=== PATIENT | male | born 1945 | race Caucasian/White ===

== ENCOUNTER 2020-01-15 20:03 | Inpatient (IN) ==
[2020-01-15] MEDS ORDERED: Aspirin 81 MG TAB.CHEW PO ONE (20:06)
[2020-01-15] MEDS: Nitroglycerin 0.4 MG TAB.SUBL SL PRN ×3 (20:34→20:55)
[2020-01-15 20:49] LABS: Basophils # 0.1 K/mcL (0.0-0.2); Basophils % 0.9 %; Eosinophils # 0.2 K/mcL (0.0-0.6); Eosinophils % 2.4 %; Hematocrit 43.8 % (37.5-50.1); Hemoglobin 14.7 g/dL (12.9-16.9); Immature Granulocytes % 0.4 % (0-4); Lymphocytes # 1.8 K/mcL (0.6-4.6); Lymphocytes % 22.4 %; Mean Corpuscular HGB Conc 33.6 g/dL (31.6-35.5); Mean Corpuscular Hemoglobin 29.9 pg (28.0-33.3); Mean Platelet Volume 10.2 fL (9.4-12.4); Monocytes # 0.6 K/mcL (0.0-1.3); Monocytes % 6.9 %; Neutrophils # 5.3 K/mcL (1.6-8.9); Platelet Count 195 K/mcL (140-400); Red Blood Count 4.92 M/mcL (4.19-5.50)
[2020-01-15 20:51] LABS: Prothrombin Time 11.1 Seconds (9.4-12.1)
[2020-01-15 20:53] LABS: Activated Partial Thrombo Time 32.5 Seconds (26.0-36.0)
[2020-01-15 21:08] LABS: BUN/Creatinine Ratio 25 (6-26); Blood Urea Nitrogen 21 mg/dL (8-23); Calcium 9.3 mg/dL (8.6-10.3); Carbon Dioxide 26 mEq/L (23-29); Chloride 102 mEq/L (98-107); Glucose 155 mg/dL (70-105); Osmolality,Calculated 292 (280-300); Potassium 4.9 mEq/L (3.5-5.1); Sodium 138 mEq/L (136-145); eGFR For African Americans > 60 (> 60); eGFR For Non-African Americans > 60 (> 60)
[2020-01-15 21:11] LABS: Troponin I 0.11 ng/mL (< 0.04)
[2020-01-15] MEDS ORDERED: *HR* Heparin 5,000 UNIT/ML VIAL IVP PRN ×2 (21:46)
[2020-01-15] MEDS ORDERED: *HR* Heparin 5,000 UNIT/ML VIAL IVP ONE (21:46)
[2020-01-15] MEDS: Heparin 25,000 UNIT/250 ML D5W 25,000 UNIT/250 ML IV.SOLN IVC SCH (22:02)
[2020-01-15 22:19] LABS: Hematocrit 42.9 % (37.5-50.1); Hemoglobin 14.1 g/dL (12.9-16.9); Mean Corpuscular HGB Conc 32.9 g/dL (31.6-35.5); Mean Corpuscular Hemoglobin 30.1 pg (28.0-33.3); Mean Corpuscular Volume 91.5 fL (83.0-100.0); Mean Platelet Volume 10.1 fL (9.4-12.4); Platelet Count 189 K/mcL (140-400); Red Blood Count 4.69 M/mcL (4.19-5.50); White Blood Count 8.3 K/mcL (4.3-11.1)
[2020-01-15 22:22] LABS: Prothrombin Time 11.3 Seconds (9.4-12.1)
[2020-01-15 22:23] LABS: Heparin anti-factor XA UFH < 0.04 IU/mL (0.30-0.70)
[2020-01-15] MEDS ORDERED: Dextrose Gel 15 GM/37.5 ML TUBE PO PRN ×2 (23:38)
[2020-01-15] MEDS ORDERED: *HR* Dextrose 50 % in Water (Syg) 50 ML SYRINGE IVP PRN (23:38)
[2020-01-15] MEDS ORDERED: D5% in Water 1,000 ML IVC PRN (23:38)
[2020-01-16] MEDS ORDERED: Acetaminophen 325 MG TABLET PO PRN (02:15)
[2020-01-16] MEDS ORDERED: Naloxone 0.4 MG/ML INJ IVP PRN (02:15)
[2020-01-16] MEDS ORDERED: Ondansetron 4 MG/2 ML VIAL IVP PRN (02:15)
[2020-01-16] MEDS: 0.9 % Sodium Chloride 1,000 ML IVC SCH ×2 (03:21→18:15)
[2020-01-16 05:04] LABS: Basophils % 0.5 %; Eosinophils # 0.2 K/mcL (0.0-0.6); Eosinophils % 2.2 %; Hematocrit 42.6 % (37.5-50.1); Hemoglobin 14.1 g/dL (12.9-16.9); Immature Granulocytes % 0.4 % (0-4); Lymphocytes # 2.4 K/mcL (0.6-4.6); Lymphocytes % 28.6 %; Mean Corpuscular HGB Conc 33.1 g/dL (31.6-35.5); Mean Corpuscular Volume 90.6 fL (83.0-100.0); Mean Platelet Volume 10.3 fL (9.4-12.4); Monocytes # 0.6 K/mcL (0.0-1.3); Monocytes % 6.6 %; Neutrophils # 5.1 K/mcL (1.6-8.9); Platelet Count 188 K/mcL (140-400); Red Cell Distribution Width 13.9 % (11.5-14.5); Segmented Neutrophils % 61.7 %; White Blood Count 8.3 K/mcL (4.3-11.1)
[2020-01-16 05:06] LABS: Prothrombin Time 11.6 Seconds (9.4-12.1)
[2020-01-16 05:21] LABS: Alanine Aminotransferase 5 Units/L (7-52); Albumin 4.1 g/dL (3.5-5.7); Albumin/Globulin Ratio 1.7 (1.1-2.2); Alkaline Phosphatase 80 Units/L (34-104); Aspartate Amino Transferase 33 Units/L (13-39); BUN/Creatinine Ratio 25 (6-26); Bilirubin,Total 0.5 mg/dL (0.3-1.0); Blood Urea Nitrogen 20 mg/dL (8-23); Calcium 8.9 mg/dL (8.6-10.3); Carbon Dioxide 26 mEq/L (23-29); Chloride 104 mEq/L (98-107); Chol/HDL Ratio 3.3 (0-4.9); Cholesterol 124 mg/dL (< 200); Globulin 2.4 g/dL (2.4-3.5); Glucose 99 mg/dL (70-105); HDL Cholesterol 38 mg/dL (40-59); LDL Cholesterol,Calculated 57 mg/dL (0-99); Magnesium 1.4 mg/dL (1.6-2.6); Osmolality,Calculated 289 (280-300); Phosphorous 2.9 mg/dL (2.7-4.5); Potassium 4.3 mEq/L (3.5-5.1); Sodium 138 mEq/L (136-145); Total Protein 6.5 g/dL (6.4-8.9); Triglycerides 146 mg/dL (< 150); eGFR For African Americans > 60 (> 60); eGFR For Non-African Americans > 60 (> 60)
[2020-01-16] MEDS ORDERED: Morphine Sulfate 2 MG/ML SYRINGE IVP ONE (05:54)
[2020-01-16] MEDS: Nitroglycerin 0.4 MG TAB.SUBL SL PRN (06:38)
[2020-01-16] MEDS: Tiotropium 18 MCG inhalation IH SCH (07:23)
[2020-01-16] MEDS: Insulin LISPRO 300 UNITS/3 ML VIAL SQ SCH ×3 (07:57→19:24)
[2020-01-16] MEDS: Gabapentin 400 MG CAPSULE PO SCH ×4 (08:40→20:39)
[2020-01-16] MEDS: FLUoxetine 20 MG CAPSULE PO SCH (08:40)
[2020-01-16] MEDS ORDERED: 0.9 % Sodium Chloride 1,000 ML ONE ×2 (08:43→10:35)
[2020-01-16] MEDS ORDERED: Heparin 1,000 UNITS/500 mL 500 ML ONE ×2 (08:44→10:35)
[2020-01-16] MEDS ORDERED: ISOVUE-370 200 ML INFUS..BTL ONE ×3 (08:44→10:35)
[2020-01-16] MEDS ORDERED: *HR* Heparin 10,000 UNIT/10 ML VIAL ONE ×2 (08:44→10:35)
[2020-01-16] MEDS ORDERED: Nitroglycerin 1,000 MCG/10 ML VIAL IV ONE ×2 (08:44→10:36)
[2020-01-16] MEDS: Aspirin 81 MG TAB.CHEW PO SCH (08:45)
[2020-01-16] MEDS ORDERED: Tirofiban 12.5 MG/250ML 12.5 MG/250 ML BAG ONE (09:00)
[2020-01-16] MEDS ORDERED: *HR* Midazolam HCl 2 MG/2 ML VIAL ONE ×2 (09:26→10:38)
[2020-01-16] MEDS ORDERED: *HR* FentaNYL (PF) 100 MCG/2 ML VIAL ONE ×2 (09:27→10:38)
[2020-01-16] MEDS ORDERED: Tirofiban 12.5 MG/250ML 12.5 MG/250 ML BAG IVC SCH (10:45)
[2020-01-16] MEDS ORDERED: Morphine Sulfate 2 MG/ML SYRINGE IVP PRN (14:26)
[2020-01-16] MEDS: Heparin 25,000 UNIT/250 ML D5W 25,000 UNIT/250 ML IV.SOLN IVC SCH (20:51)
[2020-01-17] MEDS: Tiotropium 18 MCG inhalation IH SCH (07:42)
[2020-01-17] MEDS: Insulin LISPRO 300 UNITS/3 ML VIAL SQ SCH ×2 (07:54→12:03)
[2020-01-17] MEDS: FLUoxetine 20 MG CAPSULE PO SCH (08:04)
[2020-01-17] MEDS: Aspirin 81 MG TAB.CHEW PO SCH (08:04)
[2020-01-17] MEDS: Gabapentin 400 MG CAPSULE PO SCH (08:04)
[2020-01-17 10:48] VITALS: BP 109/67
[2020-01-17] MEDS ORDERED: lisinopriL 5 MG TABLET PO SCH (12:00)
== END 2020-01-17 13:52 | disposition home or self-care (01) | DRG 247 ==
LOC: 3BNU 20:03 → EMEROOARM 20:03 → 3BNU 22:26 → SUATTDRO 01-16 11:38
PROVIDERS: ADMIT Student in an Organized Health Care Education/Training Program; ATTEND Internal Medicine

== ENCOUNTER 2021-01-07 15:48 | Observation (INO) ==
[2021-01-07] MEDS ORDERED: 0.9 % Sodium Chloride 1,000 ML IVC ONE (16:23)
[2021-01-07 16:50] LABS: Basophils # 0.1 K/mcL (0.0-0.2); Basophils % 0.4 %; Eosinophils # 0.1 K/mcL (0.0-0.6); Eosinophils % 0.8 %; Hematocrit 36.8 % (37.5-50.1); Hemoglobin 11.9 g/dL (12.9-16.9); Immature Granulocytes % 0.7 % (0-4); Lymphocytes # 1.4 K/mcL (0.6-4.6); Lymphocytes % 12.1 %; Mean Corpuscular HGB Conc 32.3 g/dL (31.6-35.5); Mean Corpuscular Hemoglobin 29.7 pg (28.0-33.3); Mean Corpuscular Volume 91.8 fL (83.0-100.0); Mean Platelet Volume 10.1 fL (9.4-12.4); Monocytes # 0.8 K/mcL (0.0-1.3); Monocytes % 6.7 %; Neutrophils # 8.9 K/mcL (1.6-8.9); Platelet Count 202 K/mcL (140-400); Red Blood Count 4.01 M/mcL (4.19-5.50); Red Cell Distribution Width 13.8 % (11.5-14.5); Segmented Neutrophils % 79.3 %; White Blood Count 11.3 K/mcL (4.3-11.1)
[2021-01-07] MEDS ORDERED: Tdap (Boostrix) Vaccine 0.5 ML SYRINGE IM ONE (16:56)
[2021-01-07 16:58] LABS: INR 1.1; Prothrombin Time 12.5 Seconds (9.4-12.1)
[2021-01-07 17:15] LABS: Alanine Aminotransferase 22 Units/L (7-52); Albumin 4.1 g/dL (3.5-5.7); Albumin/Globulin Ratio 1.8 (1.1-2.2); Alkaline Phosphatase 91 Units/L (34-104); Aspartate Amino Transferase 23 Units/L (13-39); BUN/Creatinine Ratio 24 (6-26); Bilirubin,Direct 0.1 mg/dL (0.0-0.2); Bilirubin,Indirect 0.4 mg/dL (0.0-1.0); Bilirubin,Total 0.5 mg/dL (0.3-1.0); Blood Urea Nitrogen 34 mg/dL (8-23); Calcium 8.5 mg/dL (8.6-10.3); Carbon Dioxide 20 mEq/L (23-29); Chloride 104 mEq/L (98-107); Creatine Kinase 554 Units/L (30-223); Globulin 2.3 g/dL (2.4-3.5); Glucose 170 mg/dL (70-105); Lipase 21 Units/L (11-82); Magnesium 1.5 mg/dL (1.6-2.6); Osmolality,Calculated 294 (280-300); Potassium 4.6 mEq/L (3.5-5.1); Sodium 136 mEq/L (136-145); Total Protein 6.4 g/dL (6.4-8.9); Troponin I < 0.03 ng/mL (< 0.04); eGFR For African Americans 59 (> 60); eGFR For Non-African Americans 48 (> 60)
[2021-01-07] MEDS ORDERED: Morphine Sulfate 2 MG/ML SYRINGE IVP STA (19:07)
[2021-01-07 19:17] LABS: Bilirubin,Urine Negative (Negative); Blood,Urine Negative (Negative); Clarity,Urine Clear (Clear); Color,Urine Light-Yellow (Yellow); Glucose,Urine (UA) Normal (Normal); Ketones,Urine Negative (Negative); Leukocyte Esterase,Urine Negative (Negative); Nitrite,Urine Negative (Negative); PH,Urine 5.5 pH Units (5.0-8.0); Protein,Urine Trace mg/dL (Neg-Trace); Specific Gravity,Urine 1.018 (1.010-1.025); Urobilinogen,Urine Normal (Normal)
[2021-01-07] MEDS ORDERED: Ondansetron 4 MG/2 ML VIAL IVP PRN (20:38)
[2021-01-07] MEDS ORDERED: Naloxone 0.4 MG/ML INJ IVP PRN (20:38)
[2021-01-07] MEDS ORDERED: Melatonin 3 MG TABLET PO PRN (20:38)
[2021-01-07] MEDS ORDERED: Acetaminophen 325 MG TABLET PO PRN (20:38)
[2021-01-07] MEDS ORDERED: *HR* Promethazine 25 MG/ML VIAL IM PRN (20:38)
[2021-01-07] MEDS ORDERED: Magnesium Sulfate 1 GM/102 ML PIGGYBACK IVPB ONE (20:43)
[2021-01-07] MEDS ORDERED: Ringers Solution, Lactated 1,000 ML IVC SCH (20:45)
[2021-01-07] MEDS ORDERED: NON-FORMULARY MEDICATION 1 EACH EACH (Atorvastatin Calcium [Lipitor] 80 MG Tablet) PO SCH (21:00)
[2021-01-07] MEDS: Primidone 50 MG TABLET PO SCH (22:17)
[2021-01-08 01:24] LABS: Basophils % 0.5 %; Eosinophils # 0.1 K/mcL (0.0-0.6); Eosinophils % 0.9 %; Hematocrit 36.3 % (37.5-50.1); Hemoglobin 11.9 g/dL (12.9-16.9); Immature Granulocytes % 0.5 % (0-4); Lymphocytes # 1.7 K/mcL (0.6-4.6); Mean Corpuscular HGB Conc 32.8 g/dL (31.6-35.5); Mean Corpuscular Hemoglobin 30.3 pg (28.0-33.3); Mean Corpuscular Volume 92.4 fL (83.0-100.0); Mean Platelet Volume 10.1 fL (9.4-12.4); Monocytes # 0.6 K/mcL (0.0-1.3); Monocytes % 7.6 %; Neutrophils # 5.5 K/mcL (1.6-8.9); Platelet Count 190 K/mcL (140-400); Red Blood Count 3.93 M/mcL (4.19-5.50); Segmented Neutrophils % 69.5 %; White Blood Count 7.9 K/mcL (4.3-11.1)
[2021-01-08 01:32] LABS: INR 1.1; Prothrombin Time 12.3 Seconds (9.4-12.1)
[2021-01-08 01:45] LABS: BUN/Creatinine Ratio 25 (6-26); Blood Urea Nitrogen 25 mg/dL (8-23); Calcium 8.2 mg/dL (8.6-10.3); Carbon Dioxide 26 mEq/L (23-29); Chloride 103 mEq/L (98-107); Chol/HDL Ratio 3.1 (0-4.9); Cholesterol 96 mg/dL (< 200); Glucose 218 mg/dL (70-105); HDL Cholesterol 31 mg/dL (40-59); LDL Cholesterol,Calculated 48 mg/dL (< 100); Magnesium 1.9 mg/dL (1.6-2.6); Osmolality,Calculated 291 (280-300); Potassium 4.5 mEq/L (3.5-5.1); Sodium 135 mEq/L (136-145); Triglycerides 85 mg/dL (< 150); eGFR For African Americans > 60 (> 60); eGFR For Non-African Americans > 60 (> 60)
[2021-01-08] MEDS: *HR* Enoxaparin 40 MG/0.4 ML SYRINGE SQ SCH (04:55)
[2021-01-08] MEDS: FLUoxetine 20 MG CAPSULE PO SCH (08:51)
[2021-01-08] MEDS: Aspirin 81 MG TAB.CHEW PO SCH (08:51)
[2021-01-08] MEDS: Folic Acid 1 MG TABLET PO SCH (08:51)
[2021-01-08] MEDS: Primidone 50 MG TABLET PO SCH ×2 (08:52→20:07)
[2021-01-08] MEDS: lisinopriL 5 MG TABLET PO SCH (08:52)
[2021-01-08] MEDS: Cyanocobalamin (B-12) 1,000 MCG TABLET PO SCH (08:52)
[2021-01-08 09:16] LABS: Creatine Kinase 467 Units/L (30-223)
[2021-01-08] MEDS: Tiotropium 10 INH DOSE IH SCH ×2 (10:51→10:53)
[2021-01-08] MEDS ORDERED: D5% in Water 1,000 ML IVC PRN (14:27)
[2021-01-08] MEDS ORDERED: Dextrose Gel 15 GM/37.5 ML TUBE PO PRN ×2 (14:27)
[2021-01-08] MEDS ORDERED: *HR* Dextrose 50 % in Water (Vial) 50 ML VIAL IVP PRN (14:27)
[2021-01-08] MEDS ORDERED: 0.9 % Sodium Chloride 1,000 ML IVC SCH (14:30)
[2021-01-08] MEDS: Insulin LISPRO 300 UNITS/3 ML VIAL SUBQ SCH ×2 (15:14→17:01)
[2021-01-08] MEDS ORDERED: Insulin LISPRO 300 UNITS/3 ML VIAL SUBQ SCH (21:00)
[2021-01-09 02:29] LABS: BUN/Creatinine Ratio 27 (6-26); Blood Urea Nitrogen 22 mg/dL (8-23); Calcium 8.9 mg/dL (8.6-10.3); Carbon Dioxide 25 mEq/L (23-29); Chloride 103 mEq/L (98-107); Creatine Kinase 328 Units/L (30-223); Glucose 129 mg/dL (70-105); Magnesium 1.5 mg/dL (1.6-2.6); Osmolality,Calculated 289 (280-300); Phosphorous 3.2 mg/dL (2.7-4.5); Potassium 4.4 mEq/L (3.5-5.1); Sodium 137 mEq/L (136-145); eGFR For African Americans > 60 (> 60); eGFR For Non-African Americans > 60 (> 60)
[2021-01-09] MEDS: *HR* Enoxaparin 40 MG/0.4 ML SYRINGE SQ SCH (02:29)
[2021-01-09] MEDS: Insulin LISPRO 300 UNITS/3 ML VIAL SUBQ SCH ×2 (08:38→11:22)
[2021-01-09] MEDS: FLUoxetine 20 MG CAPSULE PO SCH (08:47)
[2021-01-09] MEDS: lisinopriL 5 MG TABLET PO SCH (08:47)
[2021-01-09] MEDS: Primidone 50 MG TABLET PO SCH (08:47)
[2021-01-09] MEDS: Cyanocobalamin (B-12) 1,000 MCG TABLET PO SCH (08:47)
[2021-01-09] MEDS: Aspirin 81 MG TAB.CHEW PO SCH (08:47)
[2021-01-09] MEDS: Folic Acid 1 MG TABLET PO SCH (09:55)
[2021-01-09 10:16] VITALS: BP 137/75
[2021-01-09] MEDS: Tiotropium 10 INH DOSE IH SCH (10:55)
== END 2021-01-09 13:00 | disposition home or self-care (01) ==
LOC: 3BNU 15:48 → EMEROOARM 15:48 → SUATTDRO 20:53 → 3BNU 21:57
PROVIDERS: ADMIT Internal Medicine; ATTEND Internal Medicine